=== PATIENT | female | born 1990 | race Caucasian/White ===

== ENCOUNTER 2016-10-12 21:05 | Emergency (ER) | payer SELFPAY ==
[2016-10-12 22:47] VITALS: BP 133/78
== END 2016-10-12 22:47 | disposition home or self-care (01) ==
LOC: ED 21:05
DX: R10.13 Epigastric pain (principal); K21.9 Gastro-esophageal reflux disease without esophagitis

== ENCOUNTER 2016-11-04 00:23 | Emergency (ER) | payer SELFPAY ==
[2016-11-04 01:25] LABS: PLATELET COUNT 303 x10^3mcL (130-400); RED CELL DISTRIBUTION WIDTH 13.5 % (11.5-14.5)
[2016-11-04 01:26] LABS: CARBON DIOXIDE 32.8 mmol/L (21-32); CHLORIDE SERUM 104 mmol/L (98-107); CREATININE SERUM 0.7 mg/dL (0.6-1.0); GFR1 > 60 mL/min; GLUCOSE SERUM 154 mg/dL (74-106); POTASSIUM SERUM 3.6 mmol/L (3.5-5.1); SODIUM SERUM 142 mmol/L (136-145)
[2016-11-04 01:30] LABS: ALBUMIN 4.1 g/dL (3.4-5.0); ALKALINE PHOSPHATASE 96 U/L (46-116); ALT/SGPT 44 U/L (14-59); AMYLASE 37 U/L (25-115); AST/SGOT 25 U/L (15-37); BILIRUBIN TOTAL 0.4 mg/dL (0.20-1.00); LIPASE 120 IU/L (73-393); TOTAL PROTEIN, SERUM 7.4 g/dL (6.4-8.2)
[2016-11-04 01:58] LABS: BAND NEUTROPHIL 4 % (0-10); BASOPHIL 0 % (0-2); MONOCYTE 3 % (0-7); SEGMENTED NEUTROPHILS 70 % (37-75); rbc morphology (normal/abnorm) NORMAL (NORMAL)
[2016-11-04 01:59] LABS: PLATELET MORPHOLOGY PLATELETS NORMAL
[2016-11-04 03:10] VITALS: BP 131/89
== END 2016-11-04 03:10 | disposition home or self-care (01) ==
LOC: ED 00:23
PROVIDERS: Emergency Medicine
DX: R10.13 Epigastric pain (principal); R11.10 Vomiting, unspecified
CPT/HCPCS: J1170; Q0162

== ENCOUNTER 2016-11-08 13:11 | Inpatient (IN) | payer BC ==
[~2016-11-08] VITALS: Ht 162.6 cm; Wt 114.3 kg
[2016-11-08 15:23] LABS: PLATELET COUNT 362 x10^3mcL (130-400); RED CELL DISTRIBUTION WIDTH 14.1 % (11.5-14.5)
[2016-11-08 15:27] LABS: CALCIUM 9.5 mg/dL (8.5-10.1); CARBON DIOXIDE 33.7 mmol/L (21-32); CHLORIDE SERUM 100 mmol/L (98-107); CREATININE SERUM 0.8 mg/dL (0.6-1.0); GFR1 > 60 mL/min; GLUCOSE SERUM 80 mg/dL (74-106); POTASSIUM SERUM 3.2 mmol/L (3.5-5.1); SODIUM SERUM 141 mmol/L (136-145)
[2016-11-08 15:32] LABS: ALBUMIN 3.9 g/dL (3.4-5.0); ALKALINE PHOSPHATASE 95 U/L (46-116); ALT/SGPT 27 U/L (14-59); AST/SGOT 13 U/L (15-37); BILIRUBIN TOTAL 0.7 mg/dL (0.20-1.00); LIPASE 123 IU/L (73-393)
[2016-11-08 15:35] LABS: TOTAL PROTEIN, SERUM 8.9 g/dL (6.4-8.2)
[2016-11-08] MEDS ORDERED: CARAFATE1 GM PO (17:13)
[2016-11-08 17:30] LABS: UA SPECIFIC GRAVITY >=1.030 (1.005-1.035); microscopic required? YES; urine erythrocyte 1+ (NEGATIVE)
[2016-11-08 17:45] VITALS: BP 148/82
[2016-11-08 18:48] LABS: T3 TOTAL 1.37 ng/mL
[2016-11-08 18:48] LABS: AMPHETAMINE QUAL UR NONE DETECTED (NEG <=1000)
[2016-11-08 19:15] LABS: CHOLESTEROL/HDL RATIO 3.1
[2016-11-08 19:25] LABS: FREE T4 1.2 ng/dL (0.76-1.46); FREE THYROXINE INDEX 3.6 ug/dL (1.4-4.5); T4(THYROXINE) 11.3 ug/dL (4.7-13.3)
[2016-11-08 21:57] VITALS: BP 126/69
[2016-11-09 06:19] VITALS: BP 115/69
[2016-11-09 06:20] LABS: BASOPHIL % 0.4 % (0-2); PLATELET COUNT 321 x10^3mcL (130-400); RED CELL DISTRIBUTION WIDTH 13.9 % (11.5-14.5)
[2016-11-09 06:39] LABS: CALCIUM 8.4 mg/dL (8.5-10.1); CARBON DIOXIDE 29.1 mmol/L (21-32); CHLORIDE SERUM 104 mmol/L (98-107); CREATININE SERUM 0.9 mg/dL (0.6-1.0); GFR1 > 60 mL/min; GLUCOSE SERUM 122 mg/dL (74-106); MAGNESIUM 2.1 mg/dL (1.8-2.4); PHOSPHOROUS 2.8 mg/dL (2.5-4.9); POTASSIUM SERUM 4.1 mmol/L (3.5-5.1); SODIUM SERUM 139 mmol/L (136-145)
[2016-11-09 10:33] VITALS: Ht 162.6 cm; Wt 114.3 kg
[2016-11-09 10:58] VITALS: BP 122/69
[2016-11-09 14:14] VITALS: BP 127/70
[2016-11-09 17:23] VITALS: BP 152/57
[2016-11-09 21:33] VITALS: BP 125/70
[2016-11-10 06:25] VITALS: BP 119/63
[2016-11-10 06:34] LABS: BASOPHIL % 0.4 % (0-2); PLATELET COUNT 260 x10^3mcL (130-400); RED CELL DISTRIBUTION WIDTH 14.2 % (11.5-14.5)
[2016-11-10 07:07] LABS: CALCIUM 8.1 mg/dL (8.5-10.1); CARBON DIOXIDE 28.1 mmol/L (21-32); CHLORIDE SERUM 98 mmol/L (98-107); CREATININE SERUM 0.7 mg/dL (0.6-1.0); GFR1 > 60 mL/min; GLUCOSE SERUM 130 mg/dL (74-106); MAGNESIUM 1.9 mg/dL (1.8-2.4); PHOSPHOROUS 2.7 mg/dL (2.5-4.9); POTASSIUM SERUM 3.8 mmol/L (3.5-5.1); SODIUM SERUM 134 mmol/L (136-145)
[2016-11-10 09:05] VITALS: BP 132/71
[2016-11-10 17:15] VITALS: BP 129/57
[2016-11-10 21:18] VITALS: BP 110/53
[2016-11-11 05:19] VITALS: BP 124/98
[2016-11-11 07:09] LABS: BASOPHIL % 0.2 % (0-2); PLATELET COUNT 199 x10^3mcL (130-400); RED CELL DISTRIBUTION WIDTH 14.5 % (11.5-14.5)
[2016-11-11 09:53] VITALS: BP 130/68
[2016-11-11 10:14] LABS: CHLORIDE SERUM 98 mmol/L (98-107); CREATININE SERUM 0.7 mg/dL (0.6-1.0); GFR1 > 60 mL/min; GLUCOSE SERUM 96 mg/dL (74-106); MAGNESIUM 2.1 mg/dL (1.8-2.4); PHOSPHOROUS 2.2 mg/dL (2.5-4.9); POTASSIUM SERUM 4.4 mmol/L (3.5-5.1); SODIUM SERUM 134 mmol/L (136-145)
[2016-11-11 13:25] VITALS: BP 126/68
[2016-11-11 16:46] VITALS: BP 138/79
[2016-11-11 21:56] VITALS: BP 107/55
[2016-11-12 06:18] VITALS: BP 117/67
[2016-11-12 06:53] LABS: ALBUMIN 2.2 g/dL (3.4-5.0); CALCIUM 7.9 mg/dL (8.5-10.1); CARBON DIOXIDE 31.8 mmol/L (21-32); CHLORIDE SERUM 101 mmol/L (98-107); CREATININE SERUM 0.7 mg/dL (0.6-1.0); GFR1 > 60 mL/min; GLUCOSE SERUM 95 mg/dL (74-106); PHOSPHOROUS 3.5 mg/dL (2.5-4.9); POTASSIUM SERUM 3.6 mmol/L (3.5-5.1); SODIUM SERUM 140 mmol/L (136-145)
[2016-11-12 07:55] LABS: BASOPHIL % 0.4 % (0-2); PLATELET COUNT 188 x10^3mcL (130-400)
[2016-11-12 07:56] LABS: RED CELL DISTRIBUTION WIDTH 14.6 % (11.5-14.5)
[2016-11-12 09:55] VITALS: BP 127/50
[2016-11-12 11:40] LABS: ALBUMIN 2.3 g/dL (3.4-5.0); BILIRUBIN DIRECT 0.13 mg/dL (0.0-0.2); BILIRUBIN TOTAL 0.3 mg/dL (0.20-1.00); TOTAL PROTEIN, SERUM 6.2 g/dL (6.4-8.2)
[2016-11-12 15:25] VITALS: BP 127/50
[2016-11-12] MEDS ORDERED: LEVAQUIN750 MG PO (16:16)
[2016-11-12] MEDS ORDERED: LAC PO (16:16)
[2016-11-12] MEDS ORDERED: COLACE100 MG PO (16:16)
[2016-11-12] MEDS ORDERED: NORCO1 TA1 PO (16:17)
[2016-11-12 17:18] VITALS: BP 121/55
== END 2016-11-12 19:20 | disposition home or self-care (01) | DRG 853 ==
LOC: ED 13:11 → MU 16:06 → DU 16:06 → MU 11-10 05:20
PROVIDERS: Emergency Medicine; Family Medicine; Surgery; ADMIT Family Medicine
PROC: 0FT44ZZ Resection of Gallbladder, Percutaneous Endoscopic Approach (ICD-10-PCS; principal; 2016-11-09 12:15)
DX: A41.9 Sepsis, unspecified organism (principal); N17.0 Acute kidney failure with tubular necrosis; E43 Unspecified severe protein-calorie malnutrition; K80.01 Calculus of gallbladder with acute cholecystitis with obstruction; K82.1 Hydrops of gallbladder; Z68.41 Body mass index [BMI] 40.0-44.9, adult; E87.1 Hypo-osmolality and hyponatremia; J98.11 Atelectasis; E66.01 Morbid (severe) obesity due to excess calories; E87.6 Hypokalemia; E83.51 Hypocalcemia; E83.39 Other disorders of phosphorus metabolism; K21.9 Gastro-esophageal reflux disease without esophagitis; F41.9 Anxiety disorder, unspecified; D64.9 Anemia, unspecified; R31.9 Hematuria, unspecified; R74.0 Nonspecific elevation of levels of transaminase and lactic acid dehydrogenase [LDH]; K76.0 Fatty (change of) liver, not elsewhere classified; Z79.899 Other long term (current) drug therapy; Z72.89 Other problems related to lifestyle
CPT/HCPCS: 80307; 83880; 84439; 94150; J0295; J0330; J0690; J0696; J1170; J1885; J2060; J2250; J2270; J2405; J3010; J3490; J7030; Q0092; Q0177